=== PATIENT | female | born 1950 | race Caucasian/White ===

== ENCOUNTER 2016-07-15 12:36 | Outpatient (CLI) | payer OTHER, MEDICARE ==
[~2016-07-15 12:36] MED LIST: PRILOSEC20 MG PO
--- NOTE | 2016-07-15 16:14 | DIAGNOSTIC IMAGING REPORT ---
PROCEDURE: US VENOUS - BILATERAL EXT INDICATION: PAINFUL VARICOSE VEINS TECHNIQUE: Duplex sonography of the deep and superficial venous system in both lower extremities was performed. Compression and augmentation techniques were used. The patient was scanned in the upright position. Surveillance of the venous system during Valsalva maneuver when appropriate was performed. COMPARISON: None. FINDINGS: The right common femoral, superficial femoral and greater saphenous veins are competent. Greater saphenous vein measures 6 pounds proximally, 3 mm mid and 3.4 mm distally. Left common femoral vein reflux (1.4 seconds). Greater saphenous and superficial femoral veins are competent. Prominent accessory saphenous vein ( 4.6 mm). Left greater saphenous vein measures 6 mm proximally, 4 mm mid and 2.3 mm distally. distally. Bilateral venous varicosities . IMPRESSION: 1. Venous reflux of the left common femoral vein 2. Bilateral varicosities
[2016-10-06] MEDS ORDERED: ASPIRIN ADULT L81 M1 PO (10:33)
== END 2016-07-15 23:00 ==
LOC: US SRH 12:36
DX: I83.93 Asymptomatic varicose veins of bilateral lower extremities (principal); I87.2 Venous insufficiency (chronic) (peripheral)

== ENCOUNTER 2016-10-10 11:39 | Day surgery (SDC) | payer OTHER, MEDICARE ==
[~2016-10-10] VITALS: Ht 166.4 cm; Wt 83.7 kg
[2016-10-10] VITALS (10 sets, daily range): BP systolic 106–131; BP diastolic 62–81
[~2016-10-10 11:39] MED LIST changes: +ASPIRIN ADULT L81 M1 PO
[2016-10-10] MEDS ORDERED: ACETAMINOPHEN PO (16:32)
[2016-10-10] MEDS ORDERED: CODEINE PO (16:32)
--- NOTE | 2016-10-10 16:34 | Provider's Discharge Care Plan ---
Problem, Goal, Plan Problem List 1. Status post phlebectomy
--- NOTE | 2016-10-10 16:34 | Provider's Discharge Care Plan ---
Problem, Goal, Plan Problem List 1. Status post phlebectomy
--- NOTE | 2016-10-11 02:13 | OPERATIVE REPORT ---
DATE OF SURGERY: 10/10/2016 SURGEON: Bravo Grant MD PREOPERATIVE DIAGNOSIS: 1. Painful varicose veins of the right leg POSTOPERATIVE DIAGNOSES: 1. Painful varicose veins, right leg. 2. Multiple subcutaneous masses PROCEDURE PERFORMED: 1. Avulsion phlebectomy of right leg (10 punctures). 2. Excision of multiple subcutaneous masses, including right flank 4 x 7 cm, right thigh 4 x 2.5 cm, right calf posterior 2.5 x 2 cm, left lateral thigh 4 x 3 cm, and left medial thigh 3.5 x 3 cm. ANESTHESIA: General and local. INDICATIONS: The patient is a 66-year-old woman with large bore painful varicose veins near the right knee. She also has multiple progressing subcutaneous masses and the ones she selected for removal are becoming increasingly sore. The leg pain has continued despite the use of 30 mm compression stockings. SURGICAL TECHNIQUE: The patient was taken to the operating room, where a general anesthetic was administered and the patient prepped and draped in the usual sterile fashion. In the preoperative area with the patient standing up, varicose veins were carefully outlined. Additionally, markings were placed over the subcutaneous masses selected for excision. She was first placed in the supine position with the right side bumped up. This allowed removal of right flank mass which was a fairly deep lipoma, measuring in total of 4 x 7 cm. This was anesthetized with 0.5% Marcaine with epinephrine and the incision made along the lines of skin tension. Subcutaneous tissue was divided and a well encapsulated fatty mass was excised with pinpoint electrocautery for hemostasis. The wound was closed with interrupted and running subcuticular 4-0 Vicryl suture. The right leg was then approached. The varicose veins were avulsed using a total of 10 puncture wounds, using a fine-tip hemostat to avulse the veins in their entirety. These wounds were closed with a combination of Mastisol and Steri-Strips once hemostasis was complete, toward the end of the procedure. A sterile pressure wrap was placed during the performance of this to ensure hemostasis, and the patient was in Trendelenburg position. The right leg masses were then excised with the dimensions described above and the wound closed in a similar fashion. Once this was complete, the left leg was approached and the 2 masses on the left were removed. All of the subcutaneous masses appeared to be well encapsulated fatty tissue most consistent with lipoma. At the conclusion of the procedure, all wounds were hemostatic. The right leg was treated with a compression wrap starting from the ankle up. The patient will be observed at strict bed rest for at least 4-5 hours before arising to go home and will be observed at that point for evidence of bleeding.
[2016-10-11 02:30] VITALS: BP 114/64
[2016-10-11 06:51] VITALS: BP 124/69
--- NOTE | 2016-10-11 11:20 | Progress Note ---
Late Entry Date/Time Late Entry Date and Time LATE ENTRY Date of visit: Time of visit: Subjective General Pt. held yesterday when she bled when she stool up from her vein avulsion. She has not new problems today. Physical Exam Vital Signs / I&Os Vital Signs Date Time Temp Pulse Resp B/P Pulse O2 O2 Flow FiO2 Ox Delivery Rate 10/11 0651 97.5 67 18 124/69 100 Room Air 10/11 0230 97.7 57 16 114/64 99 Room Air 10/11 0036 Room Air 10/10 2308 97.9 66 20 128/72 98 Room Air 10/10 2114 98.2 78 18 127/77 100 Room Air 10/10 2000 70 18 120/67 95 04 1900 98.2 76 18 106/62 96 Room Air 10/10 1830 98.4 69 18 119/71 97 Room Air 10/10 1800 98.8 70 18 126/73 95 Room Air 10/10 1745 98.2 62 18 116/72 98 Room Air 10/10 1730 98.2 61 18 127/75 99 Room Air 10/10 1715 98.2 66 18 131/81 99 Room Air 10/10 1710 98.2 66 18 131/77 98 Room Air 10/10 1656 99.0 75 16 132/70 100 04/10 1650 79 17 133/75 100 04/10 1640 78 17 140/78 98 04/10 1630 75 16 133/78 100 04/10 1620 78 16 133/78 100 04/10 1615 70 16 125/78 98 04/10 1610 76 16 134/75 100 04/10 1605 77 16 133/78 98 /10 1600 73 17 147/68 100 04/10 1553 70 17 133/68 100 04/10 1547 97.9 75 20 154/105 99 04/10 1135 98.1 63 18 139/84 99 I&O 10/10 0800 10/10 1600 10/11 0000 Intake Total 525 495 Output Total 10 1100 Balance 515 -605 General Appearance Alert, Oriented X3, Cooperative Extremities Normal exam, dressings in place Assessment and Plan Problem List 1. Status post phlebectomy Plan home today if no further bleeding.
== END 2016-10-11 11:43 | disposition home or self-care (01) ==
LOC: OR SRH 11:39 → OB SRH 11:40 → OR SRH 12:30 → ACUTE2 SRH 17:06 → OR SRH 10-11 11:43
PROC: 0JBL0ZZ Excision of Right Upper Leg Subcutaneous Tissue and Fascia, Open Approach (ICD-10-PCS; principal; 2016-10-11)
PROC: 0JBM0ZZ Excision of Left Upper Leg Subcutaneous Tissue and Fascia, Open Approach (ICD-10-PCS; principal; 2016-10-11)
PROC: 06DY3ZZ Extraction of Lower Vein, Percutaneous Approach (ICD-10-PCS; principal; 2016-10-11)
PROC: 0JB70ZZ Excision of Back Subcutaneous Tissue and Fascia, Open Approach (ICD-10-PCS; principal; 2016-10-11)
PROC: 0JBN0ZZ Excision of Right Lower Leg Subcutaneous Tissue and Fascia, Open Approach (ICD-10-PCS; principal; 2016-10-11)
DX: I83.811 Varicose veins of right lower extremity with pain (principal); D17.24 Benign lipomatous neoplasm of skin and subcutaneous tissue of left leg; D17.23 Benign lipomatous neoplasm of skin and subcutaneous tissue of right leg; D17.1 Benign lipomatous neoplasm of skin and subcutaneous tissue of trunk